=== PATIENT | female | born 1955 | race Caucasian/White ===

== ENCOUNTER → 2022-01-20 | Outpatient (CLI) | payer MEDICARE, BC ==
[~2022-01-20] MED LIST: ASPIR 8181 MG PO; BONIVA150 MG PO; NORCO 5-325 TA1 EACH PO; NORCO 7.5-3251 EACH PO; ONE DAILY1 EACH PO; TRAMADOL HCL50 MG PO; VITAMIN D31000 UNIT PO
== END ==
LOC: EXRD 14:10
DX: M79.604 Pain in right leg (principal); R60.9 Edema, unspecified
CPT/HCPCS: 93971

== ENCOUNTER → 2022-04-02 | Outpatient (CLI) | payer BC | LOC: KOH-I 08:43 | DX: R05.3 Chronic cough (principal) | CPT/HCPCS: 71046 ==